=== PATIENT | female | born 1940 | race Caucasian/White ===

== ENCOUNTER 2020-03-15 16:43 | Emergency (ER) | payer MEDICARE, OTHER ==
[2020-03-15 17:06] VITALS: BP 183/73
[2020-03-15] MEDS ORDERED: ACETAMINOPHEN 325 MG TABLET PO ONE (17:46)
--- NOTE | 2020-03-15 17:48 | ER Document Report ---
ED Medical Screen (RME) - General Chief Complaint: Fall Injury Stated Complaint: FALL/LACERATION ABOVE LEFT EYE Time Seen by Provider: 03/15/20 17:40 Mode of Arrival: Wheelchair Information source: Patient, Relative Notes: HPI; 79-year-old female presents to the emergency room after trip and fall in a parking lot hitting her head, her face, and injuring her right arm. She denies any loss of consciousness. Has a laceration to her left eyelid with significant swelling noted to her left upper eye. Tetanus is up-to-date. No meds prior to arrival. PE: Alert and oriented x3. Mild distress noted. PERRLA, EOMI ecchymosis, swelling, noted to the left eye. There is a laceration noted to the left eyebrow. Bleeding is controlled. Hematoma and swelling noted to the right elbow with tenderness on palpation to the right forearm. Lungs: Clear to auscultation without rales, rhonchi, wheezes. Heart: Regular rate rhythm without murmurs, rubs, gallops. I have greeted and performed a rapid initial assessment of this patient. A comprehensive ED assessment and evaluation of the patient, analysis of test results and completion of the medical decision making process will be conducted by additional ED providers. I have specifically instructed the patient or family members with the patient to immediately return to any nursing staff should anything change in the patient's condition or with their chief complaint. TRAVEL OUTSIDE OF THE [place] IN LAST 30 DAYS: No Physical Exam - Vital signs Vitals: Temp Pulse Resp BP Pulse Ox 98.7 F 92 18 183/73 H 97 03/15/20 17:04 03/15/20 17:04 03/15/20 17:04 03/15/20 17:04 03/15/20 17:04 Course - Vital Signs Vital signs: Temp Pulse Resp BP Pulse Ox 98.7 F 92 18 183/73 H 97 03/15/20 17:04 03/15/20 17:04 03/15/20 17:04 03/15/20 17:04 03/15/20 17:04
--- NOTE | 2020-03-15 18:43 | RADIOLOGY REPORT (SQ) ---
EXAM DESCRIPTION: FOREARM RIGHT IMAGES COMPLETED DATE/TIME: 03/15/2020 5:26 pm REASON FOR STUDY: fall/arm injury COMPARISON: None. NUMBER OF VIEWS: Two views. TECHNIQUE: Two radiographic images acquired of the right forearm, including elbow and wrist in at le ast one projection. LIMITATIONS: None. FINDINGS: MINERALIZATION: Normal. BONES: Acute comminuted fracture of the proximal ulna with involvement of the articular surface. Ladonna luation of the radius is limited due to positioning. The distal humerus appears intact. SOFT TISSUES: No obvious swelling or foreign body. OTHER: No other significant finding. IMPRESSION: Acute intra-articular comminuted fracture of the proximal ulna. Evaluation of the radiu s and elbow joint alignment is limited due to positioning. Recommend dedicated radiographs of the el bow or possibly CT for further evaluation and complete characterization. TECHNICAL DOCUMENTATION: JOB ID: [id number] 2010 [employer]- All Rights Reserved Reading location - IP/workstation name: [email or web address]
[2020-03-15] MEDS ORDERED: FENTANYL CITRATE INJ/PF 100 MCG/2 ML AMPUL IV ONE (18:44)
[2020-03-15] MEDS ORDERED: DIPH/PERTUSS(ACELL)/TETANUS VAC/PF 0.5 ML SYR (>=10YO) IM ONE (18:45)
[2020-03-15] MEDS ORDERED: LIDOCAINE 1% INJ-PF (10 MG/ML) 30 ML SDV INJ ONE (18:45)
--- NOTE | 2020-03-15 18:49 | RADIOLOGY REPORT (SQ) ---
EXAM DESCRIPTION: CT HEAD WITHOUT IMAGES COMPLETED DATE/TIME: 03/15/2020 5:26 pm REASON FOR STUDY: trauma COMPARISON: None. TECHNIQUE: Axial images acquired through the brain without intravenous contrast. Images reviewed wi th bone, brain and subdural windows. Additional sagittal and coronal reconstructions were generated. Images stored on PACS. All CT scanners at this facility use dose modulation, iterative reconstruction, and/or weight based d osing when appropriate to reduce radiation dose to as low as reasonably achievable (ALARA). [facility]: Dose Right [facility]: CareDose [facility]: Dose Right [facility]: Teradose 4D [facility]: [employer] RADIATION DOSE: CT Rad equipment meets quality standard of care and radiation dose reduction techniq ues were employed. CTDIvol: 53.2 mGy. DLP: 991 mGy-cm. mGy. LIMITATIONS: None. FINDINGS: VENTRICLES: Normal size and contour. CEREBRUM: No masses. No hemorrhage. No midline shift. No evidence for acute infarction. Normal gra y/white matter differentiation. No areas of low density in the white matter. CEREBELLUM: No masses. No hemorrhage. No alteration of density. No evidence for acute infarction. EXTRAAXIAL SPACES: There is an acute subdural hematoma involving the midline fall from anterior to po sterior on the right as well as the right tentorium and right lateral lateral supratentorial cerebrum . This measures maximum 1.1 cm thickness along the falx. This measures maximum 7 mm thickness along the lateral parietal lobe. No significant mass effect or evidence of herniation. No parenchymal he morrhage. There is no evidence of acute territorial infarct. Mild patchy periventricular and deep w dov matter hypodense attenuation. ORBITS AND GLOBE: No intra- or extraconal masses. Normal contour of globe without masses. CALVARIUM: No fracture. PARANASAL SINUSES: No fluid or mucosal thickening. SOFT TISSUES: There is a large scalp hematoma overlying the left supraorbital ridge with mild presept al edema over the left globe. OTHER: No other significant finding. IMPRESSION: 1. Acute subdural hematoma along the right midline falx extending over the tentorium into the right p arietal dura as described. No significant mass effect or evidence of herniation. 2. No acute parenchymal hemorrhage or evidence of acute territorial infarct. 3. Large scalp hematoma left supraorbital region. EVIDENCE OF ACUTE STROKE: NO. COMMENT: Findings were called to Dr. Mcmahon on 03/15/2020 at 1840 hours Eastern time Quality ID # [id number]: Final reports with documentation of one or more dose reduction techniques (e.g., Au tomated exposure control, adjustment of the mA and/or kV according to patient size, use of iterative reconstruction technique) TECHNICAL DOCUMENTATION: JOB ID: [id number] 2010 [employer]- All Rights Reserved Reading location - IP/workstation name: [email or web address]
--- NOTE | 2020-03-15 18:51 | RADIOLOGY REPORT (SQ) ---
EXAM DESCRIPTION: CT CERVICAL SPINE WITHOUT IMAGES COMPLETED DATE/TIME: 03/15/2020 5:26 pm REASON FOR STUDY: trauma COMPARISON: None. TECHNIQUE: Axial images acquired through the cervical spine without intravenous contrast. Images re viewed with lung, soft tissue and bone windows. Reconstructed coronal and sagittal MPR images review ed. Images stored on PACS. All CT scanners at this facility use dose modulation, iterative reconstruction, and/or weight based d osing when appropriate to reduce radiation dose to as low as reasonably achievable (ALARA). [facility]: Dose Right [facility]: CareDose [facility]: Dose Right [facility]: Teradose 4D [facility]: [employer] RADIATION DOSE: CT Rad equipment meets quality standard of care and radiation dose reduction techniq ues were employed. CTDIvol: 20.6 mGy. DLP: 419 mGy-cm. mGy. LIMITATIONS: None. FINDINGS: ALIGNMENT: Anatomic. MINERALIZATION: Normal. VERTEBRAL BODIES: No acute fracture or loss of vertebral body height. Small marginal osteophytes at the endplates. DISCS: Disease with loss intervertebral disc height. No significant spinal canal stenosis. FACETS, LATERAL MASSES, POSTERIOR ELEMENTS: Multilevel facet arthropathy and uncovertebral spurring c ontributing to multilevel neural foraminal stenosis. No acute fracture or perched facets. HARDWARE: None in the spine. VISUALIZED RIBS: No fractures. LUNG APICES AND SOFT TISSUES: There is ground-glass attenuation in the upper lobes bilaterally possib ly representing pulmonary edema versus infectious/inflammatory process. OTHER: No other significant finding. IMPRESSION: 1. No acute fracture or dislocation of the cervical spine. 2. Multilevel degenerative disc disease and spondylosis. 3. Ground-glass attenuation in the upper lobes bilaterally may represent pulmonary edema or infectiou s/ inflammatory process. TECHNICAL DOCUMENTATION: JOB ID: [id number] Quality ID # [id number]: Final reports with documentation of one or more dose reduction techniques (e.g., Au tomated exposure control, adjustment of the mA and/or kV according to patient size, use of iterative reconstruction technique) 2010 [employer]- All Rights Reserved Reading location - IP/workstation name: [email or web address]
--- NOTE | 2020-03-15 18:52 | ER Document Report ---
ED General - General Chief Complaint: Fall Injury Stated Complaint: FALL/LACERATION ABOVE LEFT EYE Time Seen by Provider: 03/15/20 17:40 Mode of Arrival: Wheelchair TRAVEL OUTSIDE OF THE [place] IN LAST 30 DAYS: No - HPI Notes: Patient is a 79-year-old female who presents to the emergency department for evaluation after a fall. She tripped over a curb in the parking lot of a local grocery store. She fell, striking her head. She also injured her right elbow and right wrist. No loss of consciousness. No neck or back pain. She denies any visual changes, with the exception of the edema around her left eye making it difficult to see. No difficulty speaking or swallowing. She states her pain is primarily in her right elbow, worsened by movement. Nothing seems to make it better. She initially thought her tetanus is up-to-date, but admits that this time she is unsure. - Related Data Allergies/Adverse Reactions: No Known Allergies Allergy (Verified 03/15/20 19:35) Past Medical History - General Information source: Patient, Relative - Social History Smoking Status: Former Smoker Family History: Reviewed & Not Pertinent - Past Medical History Cardiac Medical History: Reports: Hx Hypercholesterolemia, Hx Hypertension Endocrine Medical History: Reports: Hx Diabetes Mellitus Type 2 Malignancy Medical History: Reports: Hx Breast Cancer Past Surgical History: Reports: Hx Cholecystectomy Review of Systems - Review of Systems Constitutional: No symptoms reported EENT: See HPI Cardiovascular: No symptoms reported Respiratory: No symptoms reported Gastrointestinal: No symptoms reported Genitourinary: No symptoms reported Musculoskeletal: See HPI Skin: See HPI Neurological/Psychological: No symptoms reported Physical Exam - Vital signs Vitals: Temp Pulse Resp BP Pulse Ox 98.7 F 92 18 183/73 H 97 03/15/20 17:04 03/15/20 17:04 03/15/20 17:04 03/15/20 17:04 03/15/20 17:04 - Notes Notes: Vital signs reviewed, please refer to chart. Head is normocephalic. The patient has a large hematoma over the left eyebrow, with periorbital swelling. Difficult to assess for step-off due to the degree of edema. She has a 1 cm laceration above the eyebrow, overlying the hematoma. Pupils equal round, reactive to light. Nares are patent without septal hematoma. No other facial bruno ne tenderness, no orbital stepoff. Oral mucosa is moist. Uvula is midline. Examination of the spine yields no midline tenderness or step-off. No paraspinal musculature tenderness is appreciated. Heart is regular rate and rhythm. Lungs are clear to auscultation bilaterally. Chest wall excursion is equal, chest is nontender. Abdomen is soft, nontender, normoactive bowel sounds throughout. Extremities without cyanosis, clubbing. Posterior calves are nontender. Peripheral pulses are equal. Skin is warm and dry. Examination of the right upper extremity yields obvious deformity at the right elbow with significant swelling and tenderness over the olecranon. Full range of motion at the wrist, fingers, thumb. Neurovascularly intact distally. Patient is awake, alert, oriented x3. Cranial nerves II - XII are grossly intact without focal neurological deficits. Strength is plus 5 out of 5 bilateral upper and lower extremities. Sensation is intact. Reflexes symmetrical. Intact fin [id number], rapid alternating movements, [id number]. Course - Re-evaluation Re-evalutation: 03/15/20 18:51 Patient presents to the emergency department for evaluation. She was initially seen through triage, given Tylenol. She had multiple pictures ordered as through triage. Upon reviewing the CT, it was clear that the patient had sustained intracranial hemorrhage secondary to this fall. She also has a clear ulnar fracture. I did order dedicated elbow films. Blood work and saline lock were ordered. We will administer fentanyl prior to dedicated elbow films being performed. I will assess her laceration and close this, please see separate procedure note. Patient is not any blood thinners, has a normal neurological exam, is currently stable. 03/15/20 19:29 Currently awaiting discussion with transfer center. The patient's wound above her eyebrow was cleaned and closed. She tolerated this well. Please see separate procedure note. 03/15/20 19:37 Dr. Keys, ED physician at [facility], accepted the patient in transfer. 03/15/20 20:12 Patient reassessed after splint placement. She remains neurovascularly intact. Hypokalemia addressed with IV fluids, order placed. Her neurological exam remains intact as well. Awaiting transport. 03/15/20 21:05 Patient remains neurologically intact and stable. Transport is here to take the patient to [facility]. She is stable for transport. - Vital Signs Vital signs: Temp Pulse Resp BP Pulse Ox 98.7 F 92 19 183/73 H 98 03/15/20 17:04 03/15/20 17:04 03/15/20 20:00 03/15/20 17:04 03/15/20 19:00 - Laboratory Result Diagrams: 03/15/20 18:37 03/15/20 18:37 Laboratory results interpreted by me: 03/15/20 03/15/20 18:37 18:37 WBC 17.1 H RDW 14.3 H Lymph % (Auto) 12.3 L Absolute Neuts (auto) 14.0 H Seg Neutrophils % 81.7 H Potassium 3.0 L* Glucose 164 H - Diagnostic Test Radiology reviewed: Image reviewed, Reports reviewed Radiology results interpreted by me: 03/15/20 18:[address] 03/15/20 17:44 IMPRESSION: 1. Acute subdural hematoma along the right midline falx extending over the t entorium into the right parietal dura as described. No significant mass effect or evidence of herniation. 2. No acute parenchymal hemorrhage or evidence of acute territorial infarct. 3. Large scalp hematoma left supraorbital region. EVIDENCE OF ACUTE STROKE: NO. Cervical Spine CT 03/15/20 17:45 IMPRESSION: 1. No acute fracture or dislocation of the cervical spine. 2. Multilevel degenerative disc disease and spondylosis. 3. Ground-glass attenuation in the upper lobes bilaterally may represent pulmonary edema or infectious/ inflammatory process. Forearm X-Ray 03/15/20 17:45 IMPRESSION: Acute intra-articular comminuted fracture of the proximal ulna. Evaluation of the radius and elbow joint alignment is limited due to positioning. Recommend dedicated radiographs of the elbow or possibly CT for further evaluation and complete characterization. 03/15/20 19:[address] 03/15/20 17:44 IMPRESSION: No acute facial bone fracture. Large scalp hematoma left supraorbital region. Partial visualization subdural hematoma along the falx cerebri. Please see separate dictation CT head. Head CT 03/15/20 17:44 IMPRESSION: 1. Acute subdural hematoma along the right midline falx extending over the tentorium into the right parietal dura as described. No significant mass effect or evidence of herniation. 2. No acute parenchymal hemorrhage or evidence of acute territorial infarct. 3. Large scalp hematoma left supraorbital region. EVIDENCE OF ACUTE STROKE: NO. Cervical Spine CT 03/15/20 17:45 IMPRESSION: 1. No acute fracture or dislocation of the cervical spine. 2. Multilevel degenerative disc disease and spondylosis. 3. Ground-glass attenuation in the upper lobes bilaterally may represent pulmonary edema or infectious/ inflammatory process. Forearm X-Ray 03/15/20 17:45 IMPRESSION: Acute intra-articular comminuted fracture of the proximal ulna. Evaluation of the radius and elbow joint alignment is limited due to positioning. Recommend dedicated radiographs of the elbow or possibly CT for fu rther evaluation and complete characterization. Procedures - Laceration/Wound Repair Left Face Wound length (cm): 1 Wound's Depth, Shape: Superficial Laceration pre-procedure: Sterile PPE donned Anesthetic type: 1% Lidocaine Volume Anesthetic (mLs): 3 Wound explored: Clean, No foreign body removed Wound Repaired With: Sutures Suture Size/Type: 5:0, Prolene Number of Sutures: 2 Post-procedure wound care: Sterile dressing applied Critical Care Note - Critical Care Note Total time excluding time spent on procedures (mins): 22 Discharge - Discharge Clinical Impression: Hypokalemia Traumatic subdural hematoma Qualifiers: Encounter type: initial encounter Loss of consciousness presence/duration: without LOC Qualified Code(s): S06.5X0A - Traumatic subdural hemorrhage without loss of consciousness, initial encounter Fracture of right proximal ulna Qualifiers: Encounter type: initial encounter Condition: Stable Disposition: [facility] / [facility] Admitting Provider: Dr. Keys
[2020-03-15] MEDS ORDERED: TRANEXAMIC ACID INJ/PF 1,000 MG/10 ML SDV IV ONE (18:53)
--- NOTE | 2020-03-15 18:53 | RADIOLOGY REPORT (SQ) ---
EXAM DESCRIPTION: CT FACIAL AREA WITHOUT IMAGES COMPLETED DATE/TIME: 03/15/2020 5:26 pm REASON FOR STUDY: trauma COMPARISON: None. TECHNIQUE: Noncontrasted images through the facial bones and orbits windowed for bone and soft tissu e. Additional coronal and sagittal reconstructed images reviewed. All images stored on PACS. All CT scanners at this facility use dose modulation, iterative reconstruction, and/or weight based d osing when appropriate to reduce radiation dose to as low as reasonably achievable (ALARA). [facility]: Dose Right [facility]: CareDose [facility]: Dose Right [facility]: Teradose 4D [facility]: [employer] RADIATION DOSE: CT Rad equipment meets quality standard of care and radiation dose reduction techniq ues were employed. CTDIvol: 30.4 mGy. DLP: 591 mGy-cm. mGy. LIMITATIONS: None. FINDINGS: FACIAL BONES: No fracture or bone lesion. ORBITS: Intact. No fracture. Symmetric intact globes and retroorbital soft tissues. PARANASAL SINUSES: Polypoid mucosal thickening inferior left maxillary sinus. No air-fluid levels. Remaining paranasal sinuses are clear. SOFT TISSUES: Large scalp hematoma overlying the left supraorbital ridge. INFERIOR BRAIN: Limited view. Partial visualization of the subdural hematoma along the falx. OTHER: No other significant finding. IMPRESSION: No acute facial bone fracture. Large scalp hematoma left supraorbital region. Partial visualization subdural hematoma along the falx cerebri. Please see separate dictation CT head. TECHNICAL DOCUMENTATION: JOB ID: [id number] Quality ID # [id number]: Final reports with documentation of one or more dose reduction techniques (e.g., Au tomated exposure control, adjustment of the mA and/or kV according to patient size, use of iterative reconstruction technique) 2010 [employer]- All Rights Reserved Reading location - IP/workstation name: [id number]
[2020-03-15 18:59] LABS: ABSOLUTE BASOPHILS # (AUTO) 0.1 10^3/uL (0.0-0.2); ABSOLUTE LYMPHOCYTES (AUTO) 2.1 10^3/uL (0.5-4.7); ABSOLUTE MONOCYTES (AUTO) 0.9 10^3/uL (0.1-1.4); BASOPHILS % (AUTO) 0.3 % (0-2); EOSINOPHILS % (AUTO) 0.2 % (0-6); HEMATOCRIT 36.7 % (36.0-47.0); HEMOGLOBIN 12.7 g/dL (12.0-15.5); LYMPHOCYTES % (AUTO) 12.3 % (13-45); MEAN CORPUSCULAR HGB CONC 34.7 g/dL (32.0-36.0); MEAN CORPUSCULAR VOLUME 84 fl (80-97); MONOCYTES % (AUTO) 5.5 % (3-13); PLATELET COUNT 259 10^3/uL (150-450); RED CELL DISTRIBUTION WIDTH 14.3 % (11.5-14.0); SEGMENTED NEUTROPHILS % (AUTO) 81.7 % (42-78); TOTAL CELLS COUNTED % (AUTO) 100 %; WHITE BLOOD COUNT 17.1 10^3/uL (4.0-10.5)
[2020-03-15 19:10] LABS: INTERNATIONAL RATION (INR) 1.02; PARTIAL THROMBOPLASTIN TIME 24.7 SEC (23.5-35.8); PROTHROMBIN TIME 13.6 SEC (11.4-15.4)
[2020-03-15 19:17] LABS: ALKALINE PHOSPHATASE 105 U/L (38-126); ANION GAP 14 (5-19); ASPARTATE AMINO TRANSFERASE 33 U/L (14-36); BILIRUBIN,DIRECT 0.3 mg/dL (0.0-0.4); BILIRUBIN,TOTAL 0.7 mg/dL (0.2-1.3); BLOOD UREA NITROGEN 18 mg/dL (7-20); CALCIUM 9.1 mg/dL (8.4-10.2); CARBON DIOXIDE 22 mmol/L (22-30); CHLORIDE 104 mmol/L (98-107); GLUCOSE 164 mg/dL (75-110); TOTAL PROTEIN 7.1 g/dL (6.3-8.2)
[2020-03-15] MEDS ORDERED: POTASSI CL 40 MEQ/NS 1L 1,000 ML IV ONE (19:40)
--- NOTE | 2020-03-15 20:16 | RADIOLOGY REPORT (SQ) ---
EXAM DESCRIPTION: X-ray, two views of the right elbow. CLINICAL HISTORY: 79 years Female, trauma COMPARISON: None. FINDINGS: Highly comminuted fracture of the proximal radius and ulna is identified. The proximal radial fracture is highly comminuted and the normal articular radial head is not seen. There appears to be impaction. Also present is a proximal ulnar fracture at the articular surface which is highly comminuted. There is marked soft tissue swelling. Large elbow effusion. IMPRESSION: Highly comminuted fractures of the proximal right radius and ulna.
== END 2020-03-15 21:14 | disposition short-term general hospital (02) ==
LOC: ER 16:43
DX: S06.5X0A Traumatic subdural hemorrhage without loss of consciousness, initial encounter (principal); S01.81XA Laceration without foreign body of other part of head, initial encounter; S52.001A Unspecified fracture of upper end of right ulna, initial encounter for closed fracture; S52.101A Unspecified fracture of upper end of right radius, initial encounter for closed fracture; W10.1XXA Fall (on)(from) sidewalk curb, initial encounter; Y92.481 Parking lot as the place of occurrence of the external cause; E87.6 Hypokalemia; M50.30 Other cervical disc degeneration, unspecified cervical region; M47.812 Spondylosis without myelopathy or radiculopathy, cervical region; Z23 Encounter for immunization; I10 Essential (primary) hypertension; E11.9 Type 2 diabetes mellitus without complications; Z87.891 Personal history of nicotine dependence; Z85.3 Personal history of malignant neoplasm of breast
CPT/HCPCS: 99285; 90471; 96374; 36415; 85025; 85610; 85730; 80053; 73070; 73090; 70450; 70486; 72125; 90715; 12011; 29105; A9270; J3010; J3490 ×2; J3480